=== PATIENT | male | born 1980 | race Caucasian/White ===

== ENCOUNTER 2020-08-26 07:29 | Emergency (ER) | payer BC ==
--- NOTE | 2020-08-26 07:59 | EDM.PDOC ---
ED HPI GENERAL MEDICAL PROBLEM - General Chief Complaint: Abdominal Pain Stated Complaint: UPPER RT SIDE HURTS Time Seen by Provider: 08/26/20 07:53 Source of Information: Reports: Patient History Limitations: Reports: No Limitations - History of Present Illness INITIAL COMMENTS - FREE TEXT/NARRATIVE: 40 yo M with no past medical history was woken up at 4 AM this morning with r ight upper quadrant pain. Pain is sharp, nonradiating, constant, severe, with no alleviating or exacerbating factors. Patient feels nauseaous, but denies fever, chills, headache, diarrhea, chest pain, shortness of breath, back pain, focal numbness or weakness. ROS: A 10-point review of systems, other than pertinent positives and negatives as stated per HPI, is otherwise negative Past medical history: No additional pertinent history Past Surgical history: No additional pertinent history Social history: No additional pertinent history Family history: No additional pertinent history PHYSICAL EXAM General: AOx4, GCS = 15, moderate distress HEENT: dry mucous membrane Neck: supple, no meningismus, no Kernig or Brudzinski Cardiac: S1S2 RRR Respiratory: CTAB, no crackles or rales, no wheezing Abdomen: Soft, RUQ ttp, no rebound or guarding, nondistended, no pulsatile mass. Back: nontender Musculoskeletal: NVI distally, no deformity Neuro: No focal deficits, CN 2 - 12 WNL. right abd Pain Score (Numeric/FACES): 4 - Related Data Allergies Allergy/AdvReac Type Severity Reaction Status Date / Time No Known Allergies Allergy Verified 08/26/20 08:04 Home Meds: Home Meds . [No Known Home Meds] 08/26/20 [History] ED ROS GENERAL - Review of Systems Review Of Systems: Comprehensive ROS is negative, except as noted in HPI. (see dictation) ED EXAM, GENERAL - Physical Exam Exam: See Below (see dictation) Course - Vital Signs Last Recorded V/S: Last Vital Signs Temp 97.6 F 08/26/20 08:02 Pulse 68 08/26/20 08:02 Resp 16 08/26/20 08:02 BP 137/81 08/26/20 08:02 Pulse Ox 98 08/26/20 08:02 - Orders/Labs/Meds Orders: Active Orders 24 hr Category Date Time Status URINALYSIS W/MICROSCOPIC [UA W/MICROSCOPIC] [URIN] Stat Lab 08/26/20 08:06 Ordered Sodium Chloride 0.9% [Saline Flush] Med 08/26/20 08:00 Active 10 ml FLUSH ASDIRECTED PRN Sodium Chloride 0.9% [Saline Flush] Med 08/26/20 08:00 Active 2.5 ml FLUSH ASDIRECTED PRN Saline Lock Insert [OM.PC] Stat Oth 08/26/20 08:00 Ordered Medication Orders Sodium Chloride (Saline Flush) 10 ml FLUSH ASDIRECTED PRN PRN Reason: Keep Vein Open Sodium Chloride (Saline Flush) 2.5 ml FLUSH ASDIRECTED PRN PRN Reason: Keep Vein Open Labs: Laboratory Tests 08/26/20 08/26/20 08/26/20 Range/Units 08:45 08:45 08:45 WBC 10.15 (4.0-11.0) K/uL RBC 4.94 (4.50-5.90) M/uL Hgb 15.2 (13.0-17.0) g/dL Hct 44.8 (38.0-50.0) % MCV 90.7 (80.0-98.0) fL MCH 30.8 (27.0-32.0) pg MCHC 33.9 (31.0-37.0) g/dL RDW Std Deviation 51.3 (28.0-62.0) fl RDW Coeff of Lakia 15 (11.0-15.0) % Plt Count 167 (150-400) K/uL MPV 11.80 (7.40-12.00) fL Neut % (Auto) 80.5 H (48.0-80.0) % Lymph % (Auto) 15.1 L (16.0-40.0) % Haakon % (Auto) 3.6 (0.0-15.0) % Eos % (Auto) 0.5 (0.0-7.0) % Baso % (Auto) 0.3 (0.0-1.5) % Neut # (Auto) 8.2 H (1.4-5.7) K/uL Lymph # (Auto) 1.5 (0.6-2.4) K/uL Haakon # (Auto) 0.4 (0.0-0.8) K/uL Eos # (Auto) 0.1 (0.0-0.7) K/uL Baso # (Auto) 0.0 (0.0-0.1) K/uL Nucleated RBC % 0.0 /100WBC Nucleated RBCs # 0 K/uL APTT 28.0 (18.6-31.3) SEC Sodium 140 (136-148) mmol/L Potassium 4.8 (3.5-5.1) mmol/L Chloride 105 (98-107) mmol/L Carbon Dioxide 23.6 (21.0-32.0) mmol/L BUN 13 (7.0-18.0) mg/dL Creatinine 1.0 (0.8-1.3) mg/dL Est Cr Clr Drug Dosing 89.97 mL/min Estimated GFR (MDRD) > 60.0 ml/min Glucose 103 (74-106) mg/dL Calcium 8.4 L (8.5-10.1) mg/dL Total Bilirubin 0.3 (0.2-1.0) mg/dL AST 21 (15-37) IU/L ALT 35 (14-63) IU/L Alkaline Phosphatase 137 H (46-116) U/L Total Protein 7.2 (6.4-8.2) g/dL Albumin 3.9 (3.4-5.0) g/dL Globulin 3.3 (2.6-4.0) g/dL Albumin/Globulin Ratio 1.2 (0.9-1.6) Lipase 133 (73-393) U/L Ethyl Alcohol < 3.0 mg/dL Meds: Medications Generic Name Dose Route Start Last Admin Trade Name Freq PRN Reason Stop Dose Admin Sodium Chloride 10 ml 08/26/20 08:00 Saline Flush FLUSH ASDIRECTED PRN Keep Vein Open Sodium Chloride 2.5 ml 08/26/20 08:00 Saline Flush FLUSH ASDIRECTED PRN Keep Vein Open Discontinued Medications Generic Name Dose Route Start Last Admin Trade Name Carlosq PRN Reason Stop Dose Admin Lactated Ringer's 1,000 mls @ 999 mls/hr 08/26/20 08:00 08/26/20 08:40 Ringers, Lactated IV 08/26/20 09:00 999 mls/hr .BOLUS ONE Administration Ketorolac Tromethamine 15 mg 08/26/20 08:00 08/26/20 08:40 Toradol IVPUSH 08/26/20 08:01 15 mg ONETIME ONE Administration Ondansetron HCl 4 mg 08/26/20 08:00 08/26/20 08:41 Zofran IVPUSH 08/26/20 08:01 4 mg ONETIME ONE Administration - Re-Assessments/Exams Free Text/Narrative Re-Assessment/Exam: 08/26/20 08:06 Ordered IV fluids, Toradol, Zofran 08/26/20 09:35 His pain improved and he is currently stable for discharge. I performed a repeat exam and did not appreciate new abnormal findings. Patient exhibits normal vital signs and has a normal gait on road test. I advised the patient to return to the ER for reevaluation if symptoms worsened, including fever, worsening sharonda n, or any other worrisome symptoms. I instructed the patient to follow up with their PCP within 2-3 days. MEDICAL DECISION MAKING: I reviewed the patients past medical records, lab and radiographic findings. I discussed the case with the patient. My differential diagnosis included: Acute cholecystitis, cholelithiasis, pancreatitis. He has no tenderness to right lower quadrant, I do not suspect appendicitis. His pain was improved with IV medication, his ALP was slightly elevated but not tbili elevation, no CBD dilatation on US, my suspicion low for choledocholithiasis, amendable for outpatient surgical follow-up for his biliary colic. Departure - Departure Time of Disposition: :42 Disposition: Home, Self-Care 01 Condition: Good Clinical Impression: Biliary colic, Gallstones - Discharge Information *PRESCRIPTION DRUG MONITORING PROGRAM REVIEWED*: Not Applicable *COPY OF PRESCRIPTION DRUG MONITORING REPORT IN PATIENT CHAO: Not Applicable Instructions: Cholelithiasis, Biliary Colic, Adult Referrals: PCP,None [Primary Care Provider] - 1 Week Forms: ED Department Discharge Additional Instructions: The need for follow-up, as well as the timing and circumstances, are variable depending upon the specifics of your emergency department visit. If you don't have a primary care physician on staff, we will provide you with a referral. We always advise you to contact your personal physician following an emergency department visit to inform them of the circumstance of the visit and for follow-up with them and/or the need for any referrals to a consulting specialist. The emergency department will also refer you to a specialist when appropriate. This referral assures that you have the opportunity for follow-up care with a specialist. All of these measure are taken in an effort to provide you with optimal care, which includes your follow-up. Under all circumstances we always encourage you to contact your private physician who remains a resource for coordinating your care. When calling for follow-up care, please make the office aware that this follow-up is from your recent emergency room visit. If for any reason you are refused follow-up, please contact the [facility] at and asked to speak to the emergency department charge nurse. [facility] - General Surgery Professional [address], [address] [place] [address] Sepsis Event Note (ED) - Focused Exam Vital Signs: Vital Signs Temp Pulse Resp BP Pulse Ox 08/26/20 08:02 97.6 F 68 16 137/81 98 - My Orders Last 24 Hours: My Active Orders 08/26/20 08:00 Sodium Chloride 0.9% [Saline Flush] 10 ml FLUSH ASDIRECTED PRN Sodium Chloride 0.9% [Saline Flush] 2.5 ml FLUSH ASDIRECTED PRN Saline Lock Insert [OM.PC] Stat 08/26/20 08:06 URINALYSIS W/MICROSCOPIC [UA W/MICROSCOPIC] [URIN] Stat - Assessment/Plan Last 24 Hours: My Active Orders 08/26/20 08:00 Sodium Chloride 0.9% [Saline Flush] 10 ml FLUSH ASDIRECTED PRN Sodium Chloride 0.9% [Saline Flush] 2.5 ml FLUSH ASDIRECTED PRN Saline Lock Insert [OM.PC] Stat 08/26/20 08:06 URINALYSIS W/MICROSCOPIC [UA W/MICROSCOPIC] [URIN] Stat
[2020-08-26] MEDS ORDERED: Lactated Ringers 1,000 ML IV ONE (08:00)
[2020-08-26] MEDS ORDERED: Ondansetron 4 MG/2 ML SDV IVPUSH ONE (08:00)
[2020-08-26] MEDS ORDERED: Ketorolac 15 MG/ML SDV IVPUSH ONE (08:00)
[2020-08-26] MEDS ORDERED: Sodium Chloride 0.9% 10 ML Syringe FLUSH PRN (08:00)
[2020-08-26] MEDS ORDERED: Sodium Chloride 0.9% 2.5 ML Syringe FLUSH PRN (08:00)
--- NOTE | 2020-08-26 09:23 | US ---
INDICATION: Right upper quadrant abdominal pain. FINDINGS: An abdominal ultrasound shows normal size, contour, echogenicity of the liver. No bile duct dilation with the common bile duct measuring 2 mm. Gallstone in the neck of the gallbladder. The gallbladder is otherwise unremarkable. Negative sonographic Schroeder`s sign. No abnormalities identified in the visualized portions of the pancreatic head and body and right kidney. No right-sided hydronephrosis. IMPRESSION: 1. Cholelithiasis with no sonographic evidence of cholecystitis. Dictated by Bertt Granado MD @ 08/26/2020 9:21:11 AM Dictated by: Brett Granado MD @ 08/26/2020 09:21:19 (Electronically Signed)
[2020-08-26 09:35] LABS: BLOOD UREA NITROGEN,BUN 13 mg/dL (7.0-18.0); CARBON DIOXIDE,CO2 23.6 mmol/L (21.0-32.0); CHLORIDE,CL 105 mmol/L (98-107); GLUCOSE RANDOM 103 mg/dL (74-106); LIPASE 133 U/L (73-393); POTASSIUM,K 4.8 mmol/L (3.5-5.1); SODIUM,NA 140 mmol/L (136-148)
== END 2020-08-26 09:50 | disposition home or self-care (01) ==
LOC: MW.ED 07:29
DX: K80.50 Calculus of bile duct without cholangitis or cholecystitis without obstruction (principal)
CPT/HCPCS: 36415; 76705; 80053; 80307; 83690; 85025; 85730; 96361; 96374; 96375; 99284; J1885; J2405; J7120; 99283

== ENCOUNTER 2021-07-09 08:13 | Emergency (ER) | payer BC ==
[2021-07-09] MEDS ORDERED: Sodium Chloride 0.9% 10 ML Syringe FLUSH PRN (08:43)
[2021-07-09] MEDS ORDERED: fentaNYL 50 MCG/ML SDV IVPUSH ONE (08:43)
[2021-07-09] MEDS ORDERED: Sodium Chloride 0.9% 2.5 ML Syringe FLUSH PRN (08:43)
[2021-07-09] MEDS ORDERED: Ondansetron 4 MG/2 ML SDV IVPUSH ONE (08:43)
[2021-07-09] MEDS ORDERED: Sodium Chloride 0.9% 1,000 ML IV ONE (08:44)
--- NOTE | 2021-07-09 08:48 | EDM.PDOC ---
ED HPI GENERAL MEDICAL PROBLEM - General Chief Complaint: Abdominal Pain Stated Complaint: STOMACH PAIN / HX OF GALSTONES Time Seen by Provider: 07/09/21 08:28 - History of Present Illness INITIAL COMMENTS - FREE TEXT/NARRATIVE: History of present illness: [] Severe pain in the right upper quadrant woke the patient up at 2 AM this morning. He has had 2 or more episodes of pain like this since his August diagnosis of cholelithiasis. On ultrasound in August of this year here there was a large stone in the neck of the gallbladder. He did not have evidence of cholecystitis or obstruction and his pain got better so he made an appointment with the surgeons. He has not been able to arrange the week off that the surgeons anticipated he would need to have his gallbladder out. The patient has nausea associated with this pain but it is gradually leading up since 2 AM. He declined narcotic pain medicine at this time because he is hoping he will get to go home and anticipates he will drive himself. The patient is a smoker and understands that his he gets older and has more attacks of biliary colic it may become more complicated by other things that develop in his medical history and just because of his age. He also understands the danger of having obstructing stone caused him to have to have emergency surgery and possible complications. Review of systems: As per history of present illness and below otherwise all systems reviewed and negative. Past medical history: As per history of present illness and as reviewed below otherwise noncontributory. Surgical history: As per history of present illness and as reviewed below otherwise noncontributory. Social history: No reported history of drug or alcohol abuse. Family history: As per history of present illness and as reviewed below otherwise no ncontributory. Physical exam: Constitutional - well developed, well-nourished and in no acute distress HEENT - normocephalic, no evidence of trauma - external nose and mouth normal - no mass in neck and no JVD - mucosae moist EYES - full EOM, PERRL, no icterus - no evidence of inflammation, injection, or drainage Respiratory - no respiratory distress, equal bilateral expansion, lungs clear to auscultation and no abnormal lung sounds Cardiovascular - Regular Rhythm with S1 and S2 appreciated and no murmur, gallop or rub. GI - abdomen soft without distension or organomegaly - normal bowel sounds - no guard or rebound Musculoskeletal no gross deformity of long bones or joints - no tenderness, swelling or edema Neurologic - Alert and oriented times four - CN II-XII grossly intact - motor sensory and coordination symmetrically normal Psychiatric - appropriate mood and affect with normal thought content Hematologic - No petechiae or purpura - mucosa appropriate color and sclera not pale - normal nail bed color and refill Integument - no rash or evidence of trauma - normal turgor Diagnostics: [] Therapeutics: [] Impression: [] Plan: [] Definitive disposition and diagnosis as appropriate pending reevaluation and review of above. right upper abdomen Pain Score (Numeric/FACES): 8 - Related Data Allergies Allergy/AdvReac Type Severity Reaction Status Date / Time No Known Allergies Allergy Verified 07/09/21 08:45 Home Meds: Home Meds Amoxicillin/Clavulanate K [Augmentin 875-125 MG] 1 tab PO BID 10 Days #20 tab 07/09/21 [Rx] Ondansetron [Zofran ODT] 4 mg PO Q6H PRN #10 tab.dis 07/09/21 [Rx] Past Medical History - Past Health History Medical/Surgical History: Denies Medical/Surgical History ED ROS GENERAL - Review of Systems Review Of Systems: Comprehensive ROS is negative, except as noted in HPI. ED EXAM, GENERAL - Physical Exam Exam: See Below Free Text/Narrative:: My physical exam is in the HPI #1 Interpretation EKG Interpretation Comments: EKG sinus rhythm heart rate 56 [place] [address] and T impression essentially normal EKG with slightly slow rate compared to our standard normal range. Course - Vital Signs Text/Narrative:: 10:54 AM patient has cholecystitis with a stone on the sonogram. White count 15,000. Patient is willing to have his gallbladder out of the surgeon feels like it would be safe after antibiotics and n.p.o. after midnight. Discussed with Dr. Ayden Adkins who will see the patient in the emergency department and make arrangements for this. Patient remembered that he did not have anybody to feed his dog and his dog does not get along with strangers. He said he was going to leave. He did not have systemic signs of infection and I do not think he is very high risk but he under stands the risk he takes for possible ascending cholangitis disability . He agreed to come back if he had any early systemic signs of illness or recurrent attack. Discharged in satisfactory condition after case discussed with Dr. Adkins who actually evaluated patient in the emergency department Last Recorded V/S: Last Vital Signs Temp 36.2 C 07/09/21 08:34 Pulse 74 07/09/21 11:10 Resp 18 07/09/21 11:10 BP 108/74 07/09/21 11:10 Pulse Ox 97 07/09/21 11:10 - Orders/Labs/Meds Orders: Active Orders 24 hr Category Date Time Status EKG 12 Lead [EKG Documentation Completion] [RC] STAT Care 07/09/21 10:53 Active CORONAVIRUS COVID-19 AYANNA [MOLEC] Stat Lab 07/09/21 10:56 Received CULTURE BLOOD [BC] Stat Lab 07/09/21 10:53 Received CULTURE BLOOD [BC] Stat Lab 07/09/21 10:53 Received Sodium Chloride 0.9% [Saline Flush] Med 07/09/21 08:43 Active 10 ml FLUSH ASDIRECTED PRN Sodium Chloride 0.9% [Saline Flush] Med 07/09/21 08:43 Active 2.5 ml FLUSH ASDIRECTED PRN Blood Culture x2 Reflex Set [OM.PC] Stat Oth 07/09/21 10:40 Ordered Saline Lock Insert [OM.PC] Stat Oth 07/09/21 08:43 Ordered Medication Orders Sodium Chloride (Sodium Chloride 0.9% 10 Ml Syringe) 10 ml FLUSH ASDIRECTED PRN PRN Reason: Keep Vein Open Last Admin: 07/09/21 08:58 Dose: 10 ml Documented by: RUDDY Sodium Chloride (Sodium Chloride 0.9% 2.5 Ml Syringe) 2.5 ml FLUSH ASDIRECTED PRN PRN Reason: Keep Vein Open Last Admin: 07/09/21 08:57 Dose: 2.5 ml Documented by: RUDDY Labs: Laboratory Tests 07/09/21 07/09/21 07/09/21 Range/Units 08:39 08:39 09:00 WBC 15.11 H (4.0-11.0) K/uL RBC 5.25 (4.50-5.90) M/uL Hgb 16.3 (13.0-17.0) g/dL Hct 47.0 (38.0-50.0) % MCV 89.5 (80.0-98.0) fL MCH 31.0 (27.0-32.0) pg MCHC 34.7 (31.0-37.0) g/dL RDW Std Deviation 47.2 (28.0-62.0) fl RDW Coeff of Lakia 15 (11.0-15.0) % Plt Count 201 (150-400) K/uL MPV 11.80 (7.40-12.00) fL Neut % (Auto) 86.2 H (48.0-80.0) % Lymph % (Auto) 10.5 L (16.0-40.0) % [place] % (Auto) 3.0 (0.0-15.0) % Eos % (Auto) 0.1 (0.0-7.0) % Baso % (Auto) 0.2 (0.0-1.5) % Neut # (Auto) 13.0 H (1.4-5.7) K/uL Lymph # (Auto) 1.6 (0.6-2.4) K/uL [place] # (Auto) 0.5 (0.0-0.8) K/uL Eos # (Auto) 0.0 (0.0-0.7) K/uL Baso # (Auto) 0.0 (0.0-0.1) K/uL Nucleated RBC % 0.0 /100WBC Nucleated RBCs # 0 K/uL Sodium 141 (136-148) mmol/L Potassium 4.5 (3.5-5.1) mmol/L Chloride 105 (98-107) mmol/L Carbon Dioxide 27.7 (21.0-32.0) mmol/L BUN 18 (7.0-18.0) mg/dL Creatinine 1.2 (0.8-1.3) mg/dL Est Cr Clr Drug Dosing 74.21 mL/min Estimated GFR (MDRD) > 60.0 ml/min Glucose 134 H (74-106) mg/dL Calcium 8.6 (8.5-10.1) mg/dL Total Bilirubin 0.3 (0.2-1.0) mg/dL AST 21 (15-37) IU/L ALT 31 (14-63) IU/L Alkaline Phosphatase 160 H (46-116) U/L Total Protein 7.8 (6.4-8.2) g/dL Albumin 4.2 (3.4-5.0) g/dL Globulin 3.6 (2.6-4.0) g/dL Albumin/Globulin Ratio 1.2 (0.9-1.6) Lipase 99 (73-393) U/L Urine Color YELLOW Urine Appearance CLEAR Urine pH 6.0 (5.0-8.0) Ur Specific [place] >= 1.030 (1.001-1.035) Urine Protein NEGATIVE (NEGATIVE) mg/dL Urine Glucose (UA) NEGATIVE (NEGATIVE) mg/dL Urine Ketones TRACE H (NEGATIVE) mg/dL Urine Occult Blood NEGATIVE (NEGATIVE) Urine Nitrite NEGATIVE (NEGATIVE) Urine Bilirubin NEGATIVE (NEGATIVE) Urine Urobilinogen 0.2 (<2.0) EU/dL Ur Leukocyte Esterase NEGATIVE (NEGATIVE) Meds: Medications Generic Name Dose Route Start Last Admin Trade Name Contreras PRN Reason Stop Dose Admin Sodium Chloride 10 ml 07/09/21 08:43 07/09/21 08:58 Sodium Chloride 0.9% 10 Ml Syringe FLUSH 10 ml ASDIRECTED PRN Administration Keep Vein Open Sodium Chloride 2.5 ml 07/09/21 08:43 07/09/21 08:57 Sodium Chloride 0.9% 2.5 Ml Syringe FLUSH 2.5 ml ASDIRECTED PRN Administration Keep Vein Open Discontinued Medications Generic Name Dose Route Start Last Admin Trade Name Contreras PRN Reason Stop Dose Admin Fentanyl 50 mcg 07/09/21 08:43 07/09/21 08:55 Fentanyl 50 Mcg/Ml Sdv IVPUSH 07/09/21 08:44 Not Given ONETIME ONE Sodium Chloride 1,000 mls @ 500 mls/hr 07/09/21 08:44 07/09/21 08:57 Normal Saline IV 07/09/21 10:43 500 mls/hr .Bolus ONE Administration Piperacillin Sod/Tazobactam 100 mls @ 100 mls/hr 07/09/21 10:40 07/09/21 11:04 Sod 4.5 gm/ Sodium Chloride IV 07/09/21 11:39 100 mls/hr ONETIME ONE Administration Ondansetron HCl 4 mg 07/09/21 08:43 07/09/21 08:57 Ondansetron 4 Mg/2 Ml Sdv IVPUSH 07/09/21 08:44 4 mg ONETIME ONE Administration Departure - Departure Time of Disposition: 11:51 Disposition: Refer to Observation Condition: Good Clinical Impression: Acute cholecystitis, Cholelithiasis - Discharge Information Instructions: Cholelithiasis, Cholecystitis, [id number] Referrals: PCP,None [Primary Care Provider] - Forms: ED Department Discharge Additional Instructions: [facility] - General Surgery [address], [address] [place] [address] The following information is given to patients seen in the emergency department who are being discharged to home. This information is to outline your options for follow-up care. We provide all patients seen in our emergency department with a follow-up referral. The need for follow-up, as well as the timing and circumstances, are variable depending upon the specifics of your emergency department visit. If you don't have a primary care physician on staff, we will provide you with a referral. We always advise you to contact your personal physician following an emergency department visit to inform them of the circumstance of the visit and for follow-up with them and/or the need for any referrals to a consulting specialist. The emergency department will also refer you to a specialist when appropriate. This referral assures that you have the opportunity for follow-up care with a specialist. All of these measure are taken in an effort to provide you with optimal care, which includes your follow-up. Under all circumstances we always encourage you to contact your private physician who remains a resource for coordinating your care. When calling for follow-up care, please make the office aware that this follow-up is from your recent emergency room visit. If for any reason you are refused follow-up, please contact the [facility] Department at and asked to speak to the emergency department charge nurse. Sepsis Event Note (ED) - Focused Exam Vital Signs: Vital Signs Temp Pulse Resp BP Pulse Ox 07/09/21 11:10 74 18 108/74 97 07/09/21 10:50 79 18 122/79 97 07/09/21 10:08 62 18 110/67 97 07/09/21 09:38 60 16 108/72 97 07/09/21 09:01 58 L 18 116/73 97 07/09/21 08:34 36.2 C 56 L 18 101/74 98 - My Orders Last 24 Hours: My Active Orders 07/09/21 08:43 Sodium Chloride 0.9% [Saline Flush] 10 ml FLUSH ASDIRECTED PRN Sodium Chloride 0.9% [Saline Flush] 2.5 ml FLUSH ASDIRECTED PRN Saline Lock Insert [OM.PC] Stat 07/09/21 10:40 Blood Culture x2 Reflex Set [OM.PC] Stat 07/09/21 10:53 EKG 12 Lead [EKG Documentation Completion] [RC] STAT CULTURE BLOOD [BC] Stat CULTURE BLOOD [BC] Stat 07/09/21 10:56 CORONAVIRUS COVID-19 AYANNA [MOLEC] Stat - Assessment/Plan Last 24 Hours: My Active Orders 07/09/21 08:43 Sodium Chloride 0.9% [Saline Flush] 10 ml FLUSH ASDIRECTED PRN Sodium Chloride 0.9% [Saline Flush] 2.5 ml FLUSH ASDIRECTED PRN Saline Lock Insert [OM.PC] Stat 07/09/21 10:40 Blood Culture x2 Reflex Set [OM.PC] Stat 07/09/21 10:53 EKG 12 Lead [EKG Documentation Completion] [RC] STAT CULTURE BLOOD [BC] Stat CULTURE BLOOD [BC] Stat 07/09/21 10:56 CORONAVIRUS COVID-19 AYANNA [MOLEC] Stat
[2021-07-09 09:18] LABS: BLOOD UREA NITROGEN,BUN 18 mg/dL (7.0-18.0); CARBON DIOXIDE,CO2 27.7 mmol/L (21.0-32.0); CHLORIDE,CL 105 mmol/L (98-107); GLUCOSE RANDOM 134 mg/dL (74-106); LIPASE 99 U/L (73-393); POTASSIUM,K 4.5 mmol/L (3.5-5.1); SODIUM,NA 141 mmol/L (136-148)
--- NOTE | 2021-07-09 10:31 | US ---
INDICATION: Right upper quadrant abdomen pain TECHNIQUE: Ultrasound abdomen limited. Sonographic images of the right upper quadrant were obtained using awad-scale and color Doppler images. COMPARISON: None FINDINGS: Liver: Normal in size and echotexture. No masses. No intrahepatic biliary dilatation. Gallbladder: Prominent stone in the gallbladder measuring 1.7 cm. Gallbladder wall is mildly thickened measuring 4 mm. Common bile duct: 3 mm. Pancreas: Normal. Right kidney: Normal in size. Normal echotexture and cortex. No suspicious masses, stones, or hydronephrosis. IMPRESSION: Cholelithiasis with mild gallbladder wall thickening. Acute cholecystitis is possible. No biliary dilatation. Dictated by Sharad Díaz MD @ 07/09/2021 10:29:[address] Sharad Díaz @ Jul 09 2021 10:29AM
[2021-07-09] MEDS ORDERED: Piperacillin/Tazobactam 4.5 GM in Sodium Chloride 0.9% 100 ML IV ONE (10:40)
--- NOTE | 2021-07-09 11:51 | CR ---
INDICATION: Preoperative exam. Smoking history. COMPARISON: none TECHNIQUE: Portable AP erect chest performed at 11:19 a.m. FINDINGS: The lungs are clear. The heart, mediastinum and pulmonary vessels are of normal size. There is no evidence of pleural fluid. IMPRESSION: Negative chest. Dictated by Chon Corona MD @ 07/09/2021 11:49:[address] Chon Corona @ Jul 09 2021 11:49AM
--- NOTE | 2021-07-09 16:28 | CONS ---
DATE OF CONSULTATION: 07/09/2021 DATE OF : 1980 PRIMARY CARE PHYSICIAN: None PCP SUBJECTIVE: The patient is a pleasant 41-year-old gentleman who said that at 2 a.m. this morning, he started having some right upper abdominal pain. His pain was severe but did not radiate anywhere. Did cause some nausea and vomiting. He said he took a hot bath, and this seemed to help but did not completely go away, so he came into the ER for further evaluation. In the ER, he did an ultrasound, which showed a prominent stone in the gallbladder and mild gallbladder thickening of 4 mm. Common bile duct was 3 mm. He did have a white cell count of 15.11 and his alkaline phosphatase was elevated to 160. The patient says since being in the ER, his pain has dissipated. He has no nausea or vomiting. He is now pain free and is feeling good. I have seen this patient in the past for potentially an elective cholecystectomy. At the time, the patient said he was busy with work and wanted to put it off. PAST MEDICAL HISTORY: The patient denies any. PAST SURGICAL HISTORY: The patient denies any. FAMILY HISTORY: Mother with diabetes. SOCIAL HISTORY: The patient smokes a pack cigarettes per day. He denies any illicit drug use. He denies any alcohol use. REVIEW OF SYSTEMS: Complete 12+ review of systems was done and was negative except for those in HPI. ALLERGIES: No known drug allergies. LABORATORY DATA: White cell count is 15.11, hemoglobin is 16.3, and platelet count is 201. Sodium 141, potassium 4.5, chloride 105, BUN 18, creatinine 1.6, glucose is 134, total bilirubin 0.3, AST is 21, ALT is 31, alkaline phosphatase is 160, and lipase is 99. IMAGING: Ultrasound as per HPI. PHYSICAL EXAMINATION: GENERAL: The patient is lying comfortably in the ER bed. He is alert and oriented in no acute distress. VITAL SIGNS: Temperature is 97.2, pulse is 74, blood pressure is 108/74, and saturating 97% on room air. LUNGS: Clear to auscultation bilaterally. No rhonchi or wheezes are heard. HEART: Regular rhythm. No murmur appreciated. ABDOMEN: Soft, nontender, and nondistended. EXTREMITIES: No edema. NEUROLOGIC: Grossly no motor or neurologic deficits noted. ASSESSMENT AND PLAN: This is a pleasant 41-year-old gentleman who likely has developing acute cholecystitis. Currently, he has no abdominal pain. The patient has had abdominal pain off and on for the past 4 to 5 years. The patient knows he needs his gallbladder out but has been reluctant because of work issues. Today, the patient says he does not want to have surgery or admitted because he has prior obligations. I did go over with the patient that the best medical course would be to come to the hospital and have his gallbladder removed. I did go over again with the patient what the gallbladder was, went over its function, and what cholecystitis and symptomatic cholelithiasis was. The patient says he understands. I went over laparoscopic cholecystectomy again with the patient including risks, goals, and alternatives of procedure again with the patient. The patient understands. Again, he would like to avoid any surgery or admission today, so the patient will go home with oral antibiotics. The patient will follow up with me in clinic. I did go over with the patient again and stressed that if the pain comes back, he gets nausea or vomiting, he has dark urine or lightening of the stool, or has any issues whatsoever, he needs to come back right away. The patient is aware delay of surgery could lead to gallstone pancreatitis or ascending cholangitis, which could be life-threatening. The patient understands but still wants to go home on oral antibiotics. I did discuss plan with the ER physician. The patient will be discharged with followup with me. The patient feels that he will be able to arrange time for the surgery in next couple of weeks in his schedule. CON HOGAN /[id number]
== END 2021-07-09 12:07 | disposition home or self-care (01) ==
LOC: MW.ED 08:13
DX: K80.00 Calculus of gallbladder with acute cholecystitis without obstruction (principal); F17.200 Nicotine dependence, unspecified, uncomplicated
CPT/HCPCS: 36415; 71045; 76705; 80053; 81003; 83690; 85025; 87040; 87635; 93005; 96365; 96375; 99284; J2405; J2543; J7030; 87150; U0002